=== PATIENT | female | born 1945 | race Caucasian/White ===

== ENCOUNTER 2018-01-07 12:27 | Observation (INO) ==
--- NOTE | 2018-01-07 12:45 | ED ---
HPI General Chief complaint: Chest Pain Stated complaint: Chest pain Time Seen by Provider: 01/07/18 12:36 Source: patient Mode of arrival: ambulatory Limitations: no limitations History of Present Illness HPI narrative: 72yo F returns to the ED after feeling nauseous and having midsternal chest pain while she got into the car to leave. Pt was just evalauted here for back pain and was found to have compression fracture of L4. Pt wanted a stronger medication to go home other than tylenol or ibuprofen but does not usually take pain medication so does not know what reaction she has to them. Pt was given 1 lortab and observed in the ED for an hour after the medication with no adverse reactions so she was discharged. However, started feeling nauseous while waiting for her to get the car but refused to come back to the ED. Then she started feeling chest pain while she got into the car and decided to come back. Denies any sob, lip or tongue swelling, vomiting, abdominal pain, hives, itchy, focal weakness. She is hyperventilating and is starting to feel tingling in her fingers. Related Data Home Medications Medication Instructions Recorded Confirmed amlodipine 10 mg PO DAILY 01/07/18 01/07/18 raloxifene 60 mg PO DAILY 01/07/18 01/07/18 Previous Rx's Medication Instructions Recorded hydrocodone-acetaminophen 1 tab PO Q6H PRN #10 tab 01/07/18 Allergies Allergy/AdvReac Type Severity Reaction Status Date / Time codeine Allergy Severe RESPITORY Verified 01/07/18 12:39 DIFFICULTY metronidazole Allergy Severe RASH Verified 01/07/18 12:39 Sulfa (Sulfonamide Allergy Severe RASH Verified 01/07/18 12:39 Antibiotics) Review of Systems ROS: all other systems reviewed are negative [facility] Social History Social History Substance History: No History of Abuse Second Hand Smoke Exposure: No Smoking Status: Never smoker How Often Do You Have a Drink Containing Alcohol: Monthly or less Recent Travel in [facility] within the Last 8 Weeks: No Recent Out of Country Travel within the Last 8 Weeks: No Exam Narrative Exam Narrative: GENERAL: 72yo F in mild distress. SKIN: Focused skin assessment warm/dry. HEAD: Atraumatic. Normocephalic. EYES: Pupils equal and round. No scleral icterus. No injection or drainage. ENT: No nasal bleeding or discharge. Mucous membranes pink and moist. NECK: Trachea midline. No JVD. CARDIOVASCULAR: Regular rate and rhythm. No murmur appreciated. RESPIRATORY: + accessory muscle use. Hyperventilating. Clear to auscultation. Breath sounds equal bilaterally. GASTROINTESTINAL: Abdomen soft, non-tender, nondistended. MUSCULOSKELETAL: No obvious deformities. No clubbing. No cyanosis. No edema. NEUROLOGICAL: Awake and alert. No obvious cranial nerve deficits. Motor grossly within normal limits. Normal speech. PSYCHIATRIC: Appropriate mood and affect; insight and judgment normal. Course Initial Documented Vital Signs Temperature 97.8 F 01/07/18 12:35 Pulse Rate 68 01/07/18 12:35 Respiratory Rate 22 01/07/18 12:35 Blood Pressure 112/40 L 01/07/18 12:35 Pulse Oximetry 99 01/07/18 12:35 Last Documented Vital Signs Temperature 97.8 F 01/07/18 12:35 Pulse Rate 86 01/07/18 13:40 Respiratory Rate 14 01/07/18 13:40 Blood Pressure 112/61 01/07/18 13:40 Pulse Oximetry 95 01/07/18 13:40 Medical Decision Making MDM Narrative Medical decision making narrative: 72yo F with chest pain and nausea after being discharged from the ED. Pt was given lortab but was observed in the ED for an hour prior to discharge. Since this could be a reaction to medication, pt was given epinephrine 0.3mg IM and zofran. EKG showed diffuse ST depression with no prior to compare. Pt reevaluated at bedside and feels a little better. Chest pain is about a 2 now. Will give aspirin. Country Director is Dr. Duque. Does not remember last stress test. Troponin negative. CXR negative. Will admit to chest pain center. Discussed with Dr. Neumann's PA and accepted to her service. Medical Screen Exam Complete: Yes Emergency Medical Condition: Yes Differential Diagnosis Differential Diagnosis: Anaphylaxis vs. ACS vs. panic attack Lab Data Lab Results 01/07/18 01/07/18 Range/Units 12:40 12:40 PT 10.6 (9.8-11.6) sec INR 1.0 Ratio APTT 33.6 H (23.4-31.7) sec Total Creatine Kinase 89 (26-192) U/L Troponin I Less than 0.02 L (0.02-0.05) ng/mL Imaging Data Radiologist's impression: Chest X-Ray 01/07/18 12:41 CONCLUSION: Punctate calcified granuloma in the right lower lobe. Lungs are otherwise clear. ECG Data EKG Prior to Arrival: No Attestation: I personally reviewed and interpreted this ECG as follows: Interpretation: NSR 69bpm. LAD. RBBB. ST depression, I, V4-V6. Discharge Plan Discharge Disposition Patient Disposition: 30 Still Patient Discharge Details Diagnosis: Chest pain Physicians Team ED Provider: Brisa Allen Primary Care Provider: NON STAFF,PROVIDER Attending Provider: Ronnell Neumann Status ED Status: Admitted Observation Patient
[2018-01-07 13:09] LABS: Activated Partial Thrombo Time 33.6 sec (23.4-31.7); Prothrombin Time 10.6 sec (9.8-11.6)
[2018-01-07 13:20] LABS: Creatine Kinase 89 U/L (26-192)
[2018-01-07] MEDS ORDERED: Aspirin 325 MG Tablet PO ONE (13:36)
[2018-01-07] MEDS ORDERED: Sod Chloride 0.9% Inj 1,000 ML IV.SIG SCH (13:45)
--- NOTE | 2018-01-07 13:58 | XR ---
EXAM DATE: 01/07/2018 1:08 PM EST AGE/SEX: 72 years / Female INDICATIONS: Chest pain. CLINICAL DATA: This is the patient's initial encounter. Patient reports that signs and symptoms have been present for 1 day and indicates a pain score of 3/10. MEDICAL/SURGICAL HISTORY: Hypertension. None. COMPARISON: No prior exams available for comparison. FINDINGS: The cardiac and mediastinal contours are within normal limits. The lungs demonstrate a 3 mm calcified granuloma in the right lower lobe. Visualized bony structures are grossly intact. CONCLUSION: Punctate calcified granuloma in the right lower lobe. Lungs are otherwise clear. Electronically signed by: Nino Pinzon MD 01/07/2018 1:57 PM EST
[2018-01-07] MEDS ORDERED: Acetaminophen 500 MG Tablet PO PRN (13:59)
--- NOTE | 2018-01-07 16:18 | P.HP ---
History of Present Illness Primary Care Physician: PROVIDER NON STAFF Chief Complaint: Chest pain History of Present Illness: This is a pleasant 72-year-old female patient with a known medical history of hypertension who recently presented to the ED this morning for complaints of back pain, was found through imaging that the patient has an L4 compression fraction. Neurosurgery was called today with recommendations for conservative and medical management. Patient was actually discharged home to follow up with PCP and neurosurgeon, was given a dose Lortab for the first time. Supposedly when patient was walking out to her car, she felt nauseous and developed some midsternal chest pain. Patient represented to the ED with complaints of said chest pain and workup has been initiated. Patient states that the chest pain started in her midsternal chest, was pressure-like in nature, denied any radiation of pain, lasted roughly 15 minutes and went away with administration of epinephrine secondary to ED physician believing the pain may be related to an adverse reaction to Lortab. Patient denies any associated nausea, vomiting, shortness of breath or sweating with the pain. She denies any known aggravating factors for the pain. Patient does follow with Dr. Duque, cardiology, does have a history of systolic murmur with right bundle deanna block, an echocardiogram was done in June of this year which was reportedly unremarkable. Patient also underwent a cardiac stress test roughly 3 years ago which was reportedly negative per patient report. Patient has a history of hypertension, has been recently placed on amlodipine by her environmental air specialist, patient states that this has controlled her blood pressure well. She lives at home with her . Able to perform all ADLs per self. Does have a history of osteoporosis, states that this may be a possibility of causing her compression fracture, denies any known trauma to her spine. Denies any recent illness including fever, chills, cough, headache, dumping, nausea, vomiting, diarrhea or dysuria. At the time of assessment, patient chest pain has resolved as well as her back pain being well controlled on current regimen. - Diagnosis (1) Chest pain Review of Systems All other systems reviewed negative except as stated in HPI PMFSH - History History Provided By: Patient - Medical History Medical History: Medical History (Last Reviewed 01/07/18 @ 16:36 by Rosalia Meek) Degenerative disc disease H/O: hysterectomy Hypertension Osteoporosis Penetrating eye injury, right eye - Surgical History Surgical History: Surgical History (Last Reviewed 01/07/18 @ 16:36 by Rosalia Meek) Hx of cholecystectomy - Family History Family History: Family History (Last Updated 01/07/18 @ 16:37 by Rosalia Meek) Other Family history in first degree relatives is unremarkable - Social History I have reviewed the patient's Social History: Yes - Tobacco History Second Hand Smoke Exposure: No Smoking Status: Never smoker - Alcohol History How Often Do You Have a Drink Containing Alcohol: Monthly or less - Substance Use History Substance History: No History of Abuse - Travel History Recent Travel in the [place] Within the Last 8 Weeks: No Recent Travel Out of the Country Within the Last 8 Weeks: No - Immunization History Tetanus Immunization: >5 Years Medications and Allergies Active Medications: Active Medications Acetaminophen (Tylenol) 500 mg PO Q4H PRN PRN Reason: HEADACHE Sodium Chloride (Ns Inj) 1,000 mls @ 100 mls/hr IV.CONT .Q10H LALO Nitroglycerin (Nitrostat Sl) 0.4 mg SL Q5M PRN PRN Reason: CHEST PAIN Sodium Chloride (Ns Flush) 2 ml IV.FLUSH BID LALO Sodium Chloride (Ns Flush) 2 ml IV.FLUSH PRN PRN PRN Reason: FLUSH AFTER USING IV ACCESS Allergies Allergy/AdvReac Type Severity Reaction Status Date / Time codeine Allergy Severe RESPITORY Verified 01/07/18 12:39 DIFFICULTY metronidazole Allergy Severe RASH Verified 01/07/18 12:39 Sulfa (Sulfonamide Allergy Severe RASH Verified 01/07/18 12:39 Antibiotics) Home Medications Medication Instructions Recorded Confirmed Type amlodipine 10 mg PO DAILY 01/07/18 01/07/18 History raloxifene 60 mg PO DAILY 01/07/18 01/07/18 History Exam Vital signs: Vital Signs 01/07/18 12:35 01/07/18 13:40 Temperature 97.8 F Pulse Rate 68 86 Respiratory Rate 22 14 Blood Pressure 112/40 L 112/61 Pulse Oximetry 99 95 Intake & Output 01/06/18 01/07/18 01/07/18 18:59 06:59 18:59 Intake Total 1000 / 1000 Balance 1000 / 1000 Weight 56.8 kg Intake: IV 1000 / 1000 NS Inj 1,000 ML @ 1000 mls/hr 1000 / 1000 IV.SIG BOLUS LALO Rx#:[id number] Narrative: GENERAL: Well-developed, well-nourished patient in [place]. SKIN: Warm and dry. No rash. HEAD: Normocephalic. Atraumatic. EYES:Right eye cloudiness, chronic blindness. Left eye reactive. ENT: No nasal bleeding or discharge. Mucous membranes pink and moist. NECK: Supple. Trachea midline. CARDIOVASCULAR: Regular rate and rhythm. S1, S2 noted. No murmur appreciated. Reproducible chest pain to palpation. RESPIRATORY: No accessory muscle use. Clear to auscultation. Breath sounds equal bilaterally. GASTROINTESTINAL: Abdomen soft, non-tender, nondistended. Normoactive bowel sounds x4. MUSCULOSKELETAL: No obvious deformities. Extremities without clubbing, cyanosis , or edema. Point tenderness to L4. NEUROLOGICAL: Awake and alert. No obvious cranial nerve deficits. Motor grossly within normal limits. 5/5 muscle strength in bilateral upper and lower extremities. Normal speech. PSYCHIATRIC: Appropriate mood and affect; insight and judgment normal. Results - Labs Labs: Laboratory Results - last 24 hr 01/07/18 01/07/18 12:40 12:40 PT 10.6 INR 1.0 APTT 33.6 H Total Creatine Kinase 89 Troponin I Less than 0.02 L - Imaging Impressions Chest X-Ray 01/07/18 12:41 CONCLUSION: Punctate calcified granuloma in the right lower lobe. Lungs are otherwise clear. Caprini VTE Risk Assessment Caprini VTE Risk Assessment: Moderate/High Risk (score >= 2) Caprini Risk Assessment Model: Point Value = 1 Point Value = 2 Point Value = 3 Point Value = 5 Age 41-60 Minor surgery BMI > 25 kg/m2 Swollen legs Varicose veins or History of unexplained or recurrent spontaneous Oral contraceptives or hormone replacement Sepsis (< 1 month) Serious lung disease, including pneumonia (< 1 month) Abnormal pulmonary function Acute myocardial infarction Congestive heart failure (< 1 month) History of inflammatory bowel disease Medical patient at bed rest Age 61-74 Arthroscopic surgery Major open surgery (> 45 min) Laparoscopic surgery (> 45 min) Malignancy Confined to bed (> 72 hours) Immobilizing plaster cast Central venous access Age >= 75 History of VTE Family history of VTE Factor V Leiden Prothrombin [id number] Lupus anticoagulant Anticardiolipin antibodies Elevated serum homocysteine Heparin-induced thrombocytopenia Other congenital or acquired thrombophilia Stroke (< 1 month) Elective arthroplasty Hip, pelvis, or leg fracture Acute spinal cord injury (< 1 month) Prophylaxis Regimen: Total Risk Factor Score Risk Level Prophylaxis Regimen 0-1 Low Early ambulation 2 Moderate Order ONE of the following: *Sequential Compression Device (SCD) *Heparin 5000 units SQ BID 3-4 Higher Order ONE of the following medications: *Heparin 5000 units SQ TID *Enoxaparin/Lovenox 40 mg SQ daily (WT < 150 kg, CrCl > 30 mL/min) *Enoxaparin/Lovenox 30 mg SQ daily (WT < 150 kg, CrCl > 10-29 mL/min) *Enoxaparin/Lovenox 30 mg SQ BID (WT < 150 kg, CrCl > 30 mL/min) AND/OR *Sequential Compression Device (SCD) 5 or more Highest Order ONE of the following medications: *Heparin 5000 units SQ TID (Preferred with Epidurals) *Enoxaparin/Lovenox 40 mg SQ daily (WT < 150 kg, CrCl > 30 mL/min) *Enoxaparin/Lovenox 30 mg SQ daily (WT < 150 kg, CrCl > 10-29 mL/min) *Enoxaparin/Lovenox 30 mg SQ BID (WT < 150 kg, CrCl > 30 mL/min) AND *Sequential Compression Device (SCD) Assessment and Plan - Assessment (1) Chest pain Code(s): R07.9 - Chest pain, unspecified Status: Acute - Plan This is a 72-year-old female patient with Chest pain -Patient presented to the ED with complaints of midsternal chest pain. Resolved. -Patient has been admitted to the chest pain center for observation, serial EKGs and serial troponins were ordered for ruling out ACS purposes. Initial troponin flat. Continue to monitor trend. -EKG reviewed showing moderate rate, no ST changes to indicate ischemia, bundle- branch noted. -Continue on cardiac telemetry, monitor for any arrhythmias. -Chest x-ray reviewed showing no acute cardiopulmonary disease. -CBC and BMP reviewed, essentially unremarkable. -Nitroglycerin available for chest pain as needed. -If ACS ruled out with serial EKGs and serial troponins, patient will undergo a cardiac Lexiscan in the am to further rule out any ischemia. -Patient's chest pain improved and is stable at this time and is agreeable to the plan. L4 compression fracture -Dr. Sue, neurosurgery aware of patient and spoke to ED physician today with recommendations for conservative management. -Continue on pain medication. Pain well controlled at this time. DVT Prophylaxis: SCDs. (1) Chest pain Qualifiers: Chest pain type: unspecified Qualified Code(s): R07.9 - Chest pain, unspecified
[2018-01-07 16:39] LABS: Creatine Kinase 77 U/L (26-192)
[2018-01-07] MEDS ORDERED: Ketorolac Inj 30 MG/ML (IVP) Vial IV.PUSH PRN (16:55)
[2018-01-07] MEDS: Sod Chloride 0.9% Inj 1,000 ML IV.CONT SCH (17:24)
[2018-01-07 19:33] LABS: Creatine Kinase 77 U/L (26-192)
[2018-01-08] MEDS: Sod Chloride 0.9% Inj 1,000 ML IV.CONT SCH ×3 (00:17→11:28)
[2018-01-08 04:22] VITALS: O2SAT 98
[2018-01-08 06:18] LABS: Baso % (Auto) 0.4 % (0.0-2.0); Eos # (Auto) 0.2 th/mm3 (0.0-0.4); Eos % (Auto) 1.6 % (0.0-4.0); Hematocrit 32.8 % (35.0-46.0); Lymph # (Auto) 2.4 th/mm3 (1.0-4.8); Mean Corpuscular HGB Conc 33.4 % (32.0-36.0); Mean Corpuscular Hemoglobin 30.5 pg (27.0-34.0); Mean Corpuscular Volume 91.3 fL (80.0-100.0); Mono % (Auto) 9.8 % (0.0-8.0); Neut # (Auto) 6.8 th/mm3 (1.8-7.7); Neut % (Auto) 65.2 % (16.0-70.0); Platelet Count 205 th/mm3 (150-450); Red Blood Count 3.59 mil/mm3 (4.00-5.30); Red Cell Distribution Width 11.8 % (11.6-17.2); White Blood Count 10.4 th/mm3 (4.0-11.0)
--- NOTE | 2018-01-08 09:53 | P.PNIM ---
Subjective Interval history: Follow-up chest pain. Patient seen and examined, lying in bed sleeping, awakens to voice. Doing well. Pain is well controlled. Awaiting nuclear stress test today. Chest pain has improved. No further complaints. Vital signs stable. Afebrile. Physical Exam Vital signs: Vital Signs 01/07/18 12:35 01/07/18 13:40 01/07/18 16:00 Temperature 97.8 F 97.6 F Pulse Rate 68 86 74 Respiratory Rate 22 14 17 Blood Pressure 112/40 L 112/61 111/63 Pulse Oximetry 99 95 99 01/07/18 17:34 01/07/18 20:00 01/07/18 23:30 Temperature 96.9 F L Pulse Rate 75 71 67 Respiratory Rate 16 Blood Pressure 108/60 Pulse Oximetry 98 01/08/18 00:00 01/08/18 04:00 01/08/18 08:00 Temperature 97.4 F L 97.7 F 96.2 F L Pulse Rate 78 71 62 Respiratory Rate 16 16 16 Blood Pressure 130/67 116/63 129/75 Pulse Oximetry 99 98 98 Intake & Output 01/07/18 01/08/18 01/08/18 18:59 06:59 18:59 Intake Total 1000 / 1000 1000 / 1000 Balance 1000 / 1000 1000 / 1000 Weight 56.8 kg 59.9 kg Intake: IV 1000 / 1000 1000 / 1000 NS Inj 1,000 ML @ 100 mls/hr IV 1000 / 1000 .CONT .Q10H LALO Rx#:[id number] NS Inj 1,000 ML @ 1000 mls/hr 1000 / 1000 IV.SIG BOLUS LALO Rx#:[id number] Other: # Voids 1 3 Date of Last Bowel Movement 01/06/18 Narrative: GENERAL: Well-developed, well-nourished patient in [facility]. SKIN: Warm and dry. No rash. HEAD: Normocephalic. Atraumatic. EYES:Right eye cloudiness, chronic blindness. Left eye reactive. ENT: No nasal bleeding or discharge. Mucous membranes pink and moist. NECK: Supple. Trachea midline. CARDIOVASCULAR: Regular rate and rhythm. S1, S2 noted. No murmur appreciated. Reproducible chest pain to palpation. RESPIRATORY: No accessory muscle use. Clear to auscultation. Breath sounds equal bilaterally. GASTROINTESTINAL: Abdomen soft, non-tender, nondistended. Normoactive bowel sounds x4. MUSCULOSKELETAL: No obvious deformities. Extremities without clubbing, cyanosis , or edema. Point tenderness to L4. NEUROLOGICAL: Awake and alert. No obvious cranial nerve deficits. Motor grossly within normal limits. 5/5 muscle strength in bilateral upper and lower extremities. Normal speech. PSYCHIATRIC: Appropriate mood and affect; insight and judgment normal. Results - Labs CBC & Chem 7: 01/08/18 05:40 Laboratory Results - last 24 hr 01/07/18 01/07/18 01/07/18 12:40 12:40 16:00 CBC w Diff WBC RBC Hgb Hct MCV MCH MCHC RDW Plt Count MPV Neut % (Auto) Lymph % (Auto) [place] % (Auto) Eos % (Auto) Baso % (Auto) Neut # (Auto) Lymph # (Auto) [place] # (Auto) Eos # (Auto) Baso # (Auto) WBC Differential Differential Comment PT 10.6 INR 1.0 APTT 33.6 H Total Creatine Kinase 89 77 Troponin I Less than 0.02 L Less than 0.02 L 01/07/18 01/08/18 18:50 05:40 CBC w Diff Auto diff final WBC 10.4 RBC 3.59 L Hgb 11.0 L Hct 32.8 L MCV 91.3 MCH 30.5 MCHC 33.4 RDW 11.8 Plt Count 205 MPV 8.0 Neut % (Auto) 65.2 Lymph % (Auto) 23.0 [place] % (Auto) 9.8 H Eos % (Auto) 1.6 Baso % (Auto) 0.4 Neut # (Auto) 6.8 Lymph # (Auto) 2.4 [place] # (Auto) 1.0 H Eos # (Auto) 0.2 Baso # (Auto) 0.0 WBC Differential . Differential Comment . PT INR APTT Total Creatine Kinase 77 Troponin I Less than 0.02 L - Imaging Impressions Chest X-Ray 01/07/18 12:41 CONCLUSION: Punctate calcified granuloma in the right lower lobe. Lungs are otherwise clear. Assessment and Plan - Assessment (1) Chest pain Code(s): R07.9 - Chest pain, unspecified Status: Acute - Plan This is a 72-year-old female patient with Chest pain -Patient presented to the ED with complaints of midsternal chest pain. Resolved. -Patient has been admitted to the chest pain center for observation, serial EKGs and serial troponins were ordered for ruling out ACS purposes. Initial troponin flat. Continue to monitor trend. -EKG reviewed showing moderate rate, no ST changes to indicate ischemia, bundle- branch noted. -Continue on cardiac telemetry, monitor for any arrhythmias. None overnight. -Chest x-ray reviewed showing no acute cardiopulmonary disease. -CBC and BMP reviewed, essentially unremarkable. -Nitroglycerin available for chest pain as needed. Toradol pain as well. -ACS ruled out with serial EKGs and serial troponins, patient will undergo a cardiac Lexiscan this morning to further rule out any ischemia. -Patient's chest pain improved and is stable at this time and is agreeable to the plan. L4 compression fracture -Dr. Sue, neurosurgery aware of patient and spoke to ED physician today with recommendations for conservative management. -Continue on pain medication. Pain well controlled at this time. DVT Prophylaxis: SCDs. (1) Chest pain Qualifiers: Chest pain type: unspecified Qualified Code(s): R07.9 - Chest pain, unspecified
[2018-01-08] MEDS ORDERED: Regadenoson Inj 0.4 MG/5 ML Syringe IV.PUSH ONE (11:37)
--- NOTE | 2018-01-08 12:32 | ECG ---
Date Performed: 01/07/2018 Time Performed: 18:40:48 PTAGE: 72 years EKG: Sinus rhythm BORDERLINE LEFT AXIS DEVIATION INTRAVENTRICULAR CONDUCTION DELAY ABNORMAL ECG PREVIOUS TRACING : 01/07/2018 12.32 DOCTOR: Ned Laazr Interpretating Date/Time 01/08/2018 12:30:34
--- NOTE | 2018-01-08 12:47 | ECG ---
Date Performed: 01/07/2018 Time Performed: 12:32:54 PTAGE: 72 years EKG: Sinus rhythm BORDERLINE LEFT AXIS DEVIATION lbbb ABNORMAL ECG NO PREVIOUS TRACING DOCTOR: Ned Lazar Interpretating Date/Time 01/08/2018 12:43:03
--- NOTE | 2018-01-08 13:20 | NM ---
EXAM DATE: 01/08/2018 1:15 PM EST AGE/SEX: 72 years / Female INDICATIONS:Angina. . Mid-sternal chest pain with nausea. CLINICAL DATA: This is the patient's initial encounter. Patient reports that signs and symptoms have been present for 1 day and indicates a pain score of 6/10. MEDICAL/SURGICAL HISTORY: Hypertension. Osteoporosis. Hysterectomy. Cholecystectomy. COMPARISON: [facility], CHEST 1V SINGLE AP, 01/07/2018. . DOSE: 8.1 mCi Tc 99m Myoview at rest 25.8 mCi [id number] at stress 0.4 mg Lexiscan STRESS SYMPTOMS: Headache. EJECTION FRACTION: 32 % TECHNIQUE: The patient underwent pharmacologic stress with infusion of prescribed dose. Continuous ECG tracing was monitored during stress. Gated SPECT imaging was performed after stress and conventi onal SPECT imaging was performed at rest. The examination was performed on a SPECT/CT scanner, both attenuation and non-corrected datasets were reviewed. FINDINGS: Distribution: The maximum perfused segment at stress is in the anterior lateral wall followed by the inferior wall. Perfusion Study: The pattern of perfusion at stress is within normal limits. Gated Study: There are intact wall motion and wall thickening without hypokinetic or dyskinetic segm ents. Depressed ejection fraction without ventricular dilatation. Correlation suggested. RISK CATEGORY: Intermediate to high because of depressed ejection fraction CONCLUSION: 1. Negative for stress-induced ischemia 2. Depressed ejection fraction without ventricular dilatation. Correlation suggested. Electronically signed by: Socrates Pinzon MD 01/08/2018 1:19 PM EST
--- NOTE | 2018-01-08 15:31 | TR ---
Date Performed: 01/08/2018 Time Performed: 12:07:23 DOCTOR: Jim Paris DRUG LIST: CLINICAL HISTORY: REASON FOR TEST: REASON FOR ENDING: OBSERVATION: CONCLUSION: COMMENTS: RBBB present throughout tracing. Nuclear imaging is pending
[2018-01-08 17:27] VITALS: BP 132/72; PULSE 83; RESP 20; TEMP 96.5
[2018-01-08 18:01] LABS: Chol/HDL Ratio 1.88 Ratio
== END 2018-01-08 16:02 | disposition home or self-care (01) ==
LOC: PHEDA 12:27 → PHED 12:27 → PH3 14:39
PROVIDERS: ADMIT Hospitalist; ATTEND Hospitalist
DX: D72.829 Elevated white blood cell count, unspecified; M81.0 Age-related osteoporosis without current pathological fracture; Z79.899 Other long term (current) drug therapy; I10 Essential (primary) hypertension; Z88.5 Allergy status to narcotic agent; N20.0 Calculus of kidney; Z87.891 Personal history of nicotine dependence; M54.9 Dorsalgia, unspecified; J84.10 Pulmonary fibrosis, unspecified; Z90.49 Acquired absence of other specified parts of digestive tract; R20.2 Paresthesia of skin; R07.2 Precordial pain; R11.0 Nausea; Z90.710 Acquired absence of both cervix and uterus; M48.56XA Collapsed vertebra, not elsewhere classified, lumbar region, initial encounter for fracture; R10.30 Lower abdominal pain, unspecified; R06.4 Hyperventilation; Z88.2 Allergy status to sulfonamides; G89.29 Other chronic pain